=== PATIENT | male | born 1945 | race Caucasian/White ===

== ENCOUNTER 2018-08-11 16:35 | Emergency (ER) | payer MEDICARE, BC ==
[~2018-08-11] VITALS: Ht 165.1 cm; Wt 79.5 kg
[~2018-08-11 16:35] MED LIST: AMIODARONE HCL400 MG PO; AMLODIPINE5 MG PO; ASPI81TA PO; ASPIRIN 32325 MG/TAB PO; CARDI-OMEGA1000 MG PO; CENTRUM SILVER1 TA1 PO; COMBIVENT INH14.7 GM IH; DIOVAN HCT 25 M1 TAB PO; FISH OIL1000 MG PO; FLOMAX 0.40.4 MG/CAP PO; FLOMAX0.4 MG PO; HYDROCHLOR50 MG PO; KLOR-CON20 MEQ PO; LASIX 40MG TABL40 MG PO; LEVITRA20 MG PO; LEVOTHYROXIN0.125 MG PO; LEVOTHYROXINE0.15 MG PO; LISINOPRIL40 MG PO; LOPRESSOR 225 MG/TAB PO; METFORMIN1000 MG PO; METOPROLOL25 MG PO; MULTIPLE VITAMI1 CAP PO; NIASPAN1000 MG PO; NIASPAN500 MG PO; NORCO 325 MG-51 TAB PO; PLAVIX 75MG TAB75 MG PO; RESTORIL15 MG PO; SIMVASTATIN40 MG PO; TOPROL XL 50MG50 MG PO; TRIAZOLAM0.25 MG PO; VITAMIN C BUFF500 MG PO; VITAMIN C500 MG PO; VYTORIN 10 MG-21 TAB PO; ZESTRIL 20MG TA20 MG PO; ZESTRIL40 MG PO; ZINC50 M2 PO; ZOCOR 20MG20 MG PO
[2018-08-11] MEDS ORDERED: AMARYL1 MG PO (17:53)
[2018-08-11] MEDS ORDERED: SINGULAIR 4MG CH4 MG PO (17:54)
[2018-08-11 18:09] LABS: BASO # 0.1 (0.0-0.2); BASO % 0.7 % (0.0-2.0); EOS # 0.2 (0.0-0.7); EOS % 2.3 % (0-4.0); GRAN # 3.2 (1.4-6.5); GRAN % 46.8 % (42.2-75.2); HEMATOCRIT 42.3 % (42.0-52.0); HEMOGLOBIN 14.4 g/dl (13.5-18.0); LYMPH # 2.5 (1.2-3.4); LYMPH % 35.8 % (20.0-51.0); MEAN CELL VOLUME 93 fl (80.0-100.0); MEAN CORPUSCULAR HEMOGLOBIN 32 pg (27.0-31.0); MEAN CORPUSCULAR HGB CONC 34 g/dl (33.0-37.0); MEAN PLATELET VOLUME 8.4 fl (7.4-10.4); MONO % 14.1 % (1.7-9.3); PLATELET COUNT 312 K/mm3 (130-400); RED BLOOD COUNT 4.56 M/mm3 (4.20-5.60); REDCELL DISTRIBUTION WIDTH-CV 13.2 % (11.5-14.5)
[2018-08-11 18:19] LABS: ALANINE AMINOTRANSFERASE 35 U/L (21-72); ALBUMIN 4.8 gm/dL (3.5-5.0); ALKALINE PHOSPHATASE 46 U/L (50-136); ANION GAP 4 mmol/L (7-16); AST,SGOT 32 U/L (15-37); BILIRUBIN,TOTAL 0.7 mg/dL (0.0-1.0); BLOOD UREA NITROGEN 16 mg/dL (9-20); CALCIUM 9.4 mg/dL (8.4-10.2); CARBON DIOXIDE 35 mmol/L (22-30); CHLORIDE 97 mmol/L (98-107); CREATININE, serum 0.72 mg/dL (0.66-1.25); GLUCOSE 106 mg/dL (74-106); SODIUM 136 mmol/L (137-145); TOTAL PROTEIN 7.7 gm/dL (6.4-8.2)
[2018-08-11 18:30] LABS: TROPONIN-I < 0.012 ng/mL (0.000-0.034)
[2018-08-11 19:18] VITALS: BP 154/81; PULSE 56; TEMP 97.4
== END 2018-08-11 19:18 | disposition home or self-care (01) ==
LOC: COL.ER 16:35
PROVIDERS: Physician Assistant
DX: I87.2 Venous insufficiency (chronic) (peripheral) (principal); E11.9 Type 2 diabetes mellitus without complications; I10 Essential (primary) hypertension; I25.10 Atherosclerotic heart disease of native coronary artery without angina pectoris; E03.9 Hypothyroidism, unspecified; E78.5 Hyperlipidemia, unspecified; Z98.890 Other specified postprocedural states; Z79.84 Long term (current) use of oral hypoglycemic drugs; Z79.82 Long term (current) use of aspirin; Z79.02 Long term (current) use of antithrombotics/antiplatelets

== ENCOUNTER → 2019-01-08 | Outpatient (CLI) | payer MEDICARE, BC ==
[~2019-01-08] MED LIST changes: +AMARYL1 MG PO; +SINGULAIR 4MG CH4 MG PO
== END ==
LOC: COL.RAD 07:41
DX: R05 Cough (principal); Z95.1 Presence of aortocoronary bypass graft
CPT/HCPCS: Q9967

== ENCOUNTER → 2019-02-09 | Outpatient (CLI) | payer MEDICARE, BC | LOC: COL.RAD 08:11 | DX: I63.9 Cerebral infarction, unspecified (principal); I65.23 Occlusion and stenosis of bilateral carotid arteries | CPT/HCPCS: A9585 ==

== ENCOUNTER → 2019-02-14 | Outpatient (CLI) | payer MEDICARE, BC | LOC: COL.RAD 08:17 | DX: I65.23 Occlusion and stenosis of bilateral carotid arteries (principal) | CPT/HCPCS: Q9967 ==

== ENCOUNTER 2021-02-07 00:05 | Observation (INO) | payer MEDICARE, BC ==
[~2021-02-07] VITALS: Ht 165.1 cm; Wt 68.2 kg
[2021-02-07 01:10] LABS: BASO % 0.5 % (0.0-2.0); EOS # 0.2 (0.0-0.7); EOS % 1.9 % (0-4.0); GRAN # 5.8 (1.4-6.5); GRAN % 67.2 % (42.2-75.2); HEMATOCRIT 45.6 % (42.0-52.0); HEMOGLOBIN 15.4 g/dl (13.5-18.0); LYMPH # 1.8 (1.2-3.4); MEAN CELL VOLUME 92 fl (80.0-100.0); MEAN CORPUSCULAR HEMOGLOBIN 31 pg (27.0-31.0); MEAN CORPUSCULAR HGB CONC 34 g/dl (33.0-37.0); MEAN PLATELET VOLUME 8.3 fl (7.4-10.4); MONO # 0.8 (0.1-0.6); MONO % 8.9 % (1.7-9.3); PLATELET COUNT 333 K/mm3 (130-400); RED BLOOD COUNT 4.96 M/mm3 (4.20-5.60); REDCELL DISTRIBUTION WIDTH-CV 13.6 % (11.5-14.5)
[2021-02-07 01:24] LABS: ALANINE AMINOTRANSFERASE 28 U/L (4-49); ALBUMIN 4.4 gm/dL (3.5-5.0); ALKALINE PHOSPHATASE 52 U/L (50-136); ANION GAP 7 mmol/L (7-16); AST,SGOT 32 U/L (15-37); BILIRUBIN,TOTAL 0.6 mg/dL (0.0-1.0); BLOOD UREA NITROGEN 18 mg/dL (9-20); CALCIUM 9.4 mg/dL (8.4-10.2); CARBON DIOXIDE 28 mmol/L (22-30); CHLORIDE 97 mmol/L (98-107); GLUCOSE 183 mg/dL (74-106); LIPASE 51 U/L (23-300); POTASSIUM 4.1 mmol/L (3.4-5.0); SODIUM 132 mmol/L (137-145); TOTAL PROTEIN 7.2 gm/dL (6.4-8.2)
[2021-02-07 01:25] LABS: C-REACTIVE PROTEIN < 0.5 mg/dL (0.0-0.9)
[2021-02-07 01:56] LABS: COLLECTION METHOD CLEAN CATCH
[2021-02-07 02:01] LABS: PH 7 (5-8); SQUAMOUS EPITHELIAL None Seen /hpf; URINE APPEARANCE Clear; URINE BACTERIA None Seen /hpf; URINE BILIRUBIN Negative (NEGATIVE); URINE BLOOD Negative (NEGATIVE); URINE COLOR Yellow; URINE GLUCOSE 3+ (NEGATIVE); URINE KETONE Negative (NEGATIVE); URINE LEUKOCYTE ESTERASE Negative (NEGATIVE); URINE NITRATE Negative (NEGATIVE); URINE PROTEIN(semi-quant) Negative (NEGATIVE); URINE RBC 0-2 /hpf
--- NOTE | 2021-02-07 10:35 | NUR ---
Pt has arrived to the floor from ED. He is alert and oriented with no pain complaints at this time. IV fluids infusing, oriented pt to his room and educated him on room service. Pt only requested coffee at this time
--- NOTE | 2021-02-07 11:20 | NUR ---
resting in bed watching TV, denies pain or needs, bedside shift report received from Nicholas Cabrera
--- NOTE | 2021-02-07 11:30 | NUR ---
spoke with Dr Manzo regarding patient wanting to eat and go home, order received and will start on general diet, instructed on ordering regular food, is up and about in room independently, is alert and oriented, skin warm and dry, color normal, heart rate strong and regular, lungs CTa, bowel sounds present in all 4 quads, denies pain or needs,
[2021-02-07] MEDS ORDERED: ASPIRIN E.C. 8181 MG PO (11:50)
[2021-02-07] MEDS ORDERED: HCTZ 25MG TAB25 MG PO (11:52)
[2021-02-07] MEDS ORDERED: SYNTHROID 0.10.15 MG PO ×2 (11:54→11:55)
[2021-02-07] MEDS ORDERED: GLUCOPHAGE500 MG/TAB PO (11:59)
[2021-02-07] MEDS ORDERED: TOPROL XL 25MG25 MG PO (12:00)
[2021-02-07] MEDS ORDERED: SINGULAIR 110 MG/TAB PO (12:01)
[2021-02-07] MEDS ORDERED: LIPITOR 40MG TA40 MG PO (12:03)
[2021-02-07] MEDS ORDERED: VITAMIN D31000 I1 PO (12:06)
[2021-02-07] MEDS ORDERED: VIAGRA100 M1 PO (12:07)
[2021-02-07] MEDS ORDERED: GLUCOTROL XL5 MG/TAB PO (12:08)
[2021-02-07] MEDS ORDERED: NORVASC 10MG10 MG PO (12:08)
[2021-02-07] MEDS ORDERED: JARDIANCE10 PO (12:09)
[2021-02-07] MEDS ORDERED: PROSCAR 5MG5 MG PO (12:10)
[2021-02-07] MEDS ORDERED: DESYREL 100MG100 MG PO (12:10)
[2021-02-07] MEDS ORDERED: FLOMAX 0.40.4 MG/CAP PO (12:10)
[2021-02-07] MEDS ORDERED: MELATIN 3 MG-11 TAB PO (12:11)
[2021-02-07] MEDS ORDERED: [UNRECOGNIZED DRUG - OTHER] PO (12:22)
[2021-02-07] MEDS ORDERED: PLETAL 100MG T100 MG PO (12:23)
[2021-02-07] MEDS ORDERED: PLAVIX 75MG TAB75 MG PO (12:31)
--- NOTE | 2021-02-07 13:15 | NUR ---
Dr Manzo in to see patient, if tolerates food without nausea or pain will plan discharge later
[2021-02-07 14:02] VITALS: BP 137/99; PULSE 63; TEMP 98.5
--- NOTE | 2021-02-07 16:10 | NUR ---
discharged instructions given to patient and verbalizes understanding, explained the importance of not taking his plavix until after having surgery
--- NOTE | 2021-02-07 16:15 | NUR ---
discharged ambulatory
== END 2021-02-07 16:15 | disposition home or self-care (01) ==
LOC: COL.ER 00:05 → SURG 04:11
PROVIDERS: Emergency Medicine; ADMIT Surgery
DX: K40.30 Unilateral inguinal hernia, with obstruction, without gangrene, not specified as recurrent (principal); K56.600 Partial intestinal obstruction, unspecified as to cause; I10 Essential (primary) hypertension; E78.5 Hyperlipidemia, unspecified; I25.10 Atherosclerotic heart disease of native coronary artery without angina pectoris; E11.9 Type 2 diabetes mellitus without complications; F17.210 Nicotine dependence, cigarettes, uncomplicated; E03.9 Hypothyroidism, unspecified; Z95.1 Presence of aortocoronary bypass graft; Z95.0 Presence of cardiac pacemaker; Z79.84 Long term (current) use of oral hypoglycemic drugs; Z79.02 Long term (current) use of antithrombotics/antiplatelets; Z79.82 Long term (current) use of aspirin; Z79.890 Hormone replacement therapy; Z88.8 Allergy status to other drugs, medicaments and biological substances
CPT/HCPCS: G0378; J2270; J2405; J7030; Q9967

== ENCOUNTER 2021-02-12 06:30 | Day surgery (SDC) | payer MEDICARE, BC ==
[2021-02-12] VITALS (8 sets, daily range): BP systolic 91–131; BP diastolic 52–71; PULSE 59–67; TEMP 97.5–98.4
[~2021-02-12] VITALS: Ht 165.1 cm; Wt 71.1 kg
[~2021-02-12 06:30] MED LIST changes: +ASPIRIN E.C. 8181 MG PO; +DESYREL 100MG100 MG PO; +GLUCOPHAGE500 MG/TAB PO; +GLUCOTROL XL5 MG/TAB PO; +HCTZ 25MG TAB25 MG PO; +JARDIANCE10 PO; +LIPITOR 40MG TA40 MG PO; +MELATIN 3 MG-11 TAB PO; +NORVASC 10MG10 MG PO; +PLETAL 100MG T100 MG PO; +PROSCAR 5MG5 MG PO; +SINGULAIR 110 MG/TAB PO; +SYNTHROID 0.10.15 MG PO; +TOPROL XL 25MG25 MG PO; +VIAGRA100 M1 PO; +VITAMIN D31000 I1 PO; +[UNRECOGNIZED DRUG - OTHER] PO
[2021-02-12] MEDS ORDERED: PLAVIX 75MG TAB75 MG PO (07:25)
[2021-02-12] MEDS ORDERED: ULTRAM 50MG TAB50 MG PO (10:02)
--- NOTE | 2021-02-12 10:50 | NUR ---
Pt returns to [facility] from PACU, drowsy but easily arousable and requesting coffee. Pt reports pain to left lower abdomen 02/14 but blood pressure has been 90's/50's in PACU so has not received any pain medication at this time. O2 2L/NC to keep sats >94%. Will continue to monitor, warm blanket to abdomen. Pt's and daughter at bedside.
--- NOTE | 2021-02-12 11:05 | NUR ---
Pt sat up slightly for a drink of coffee, blood pressure remains stable. Will continue to monitor, muffin to bedside per request. No nausea.
--- NOTE | 2021-02-12 11:30 | NUR ---
Pt tolerated coffee and a muffin well. O2 sats 94% on 2L/NC, more awake and alert now. Tramadol given for pain per orders. Call light in reach, side rails up x2, denies needs at this time.
--- NOTE | 2021-02-12 12:05 | NUR ---
Pt doing well, up to the bathroom, pain to abdomen, tolerable and moving around well. Voids without difficulty. O2/2L/NC removed and O2 sats >94%.
--- NOTE | 2021-02-12 12:45 | NUR ---
Pt wanting to go home. Pt doing well, VSS, denies nausea and pain tolerable. Discharge instructions provided to pt and his , understanding given. Pt will go to [facility]'s to miner pick pain medication. IV d/c'd to right wrist. Pt up to the bathroom again and voids. Pt taken to private car via w/c and left in care of .
== END 2021-02-12 13:05 | disposition home or self-care (01) ==
LOC: SDCO 06:30
DX: K40.90 Unilateral inguinal hernia, without obstruction or gangrene, not specified as recurrent (principal); I10 Essential (primary) hypertension; I25.10 Atherosclerotic heart disease of native coronary artery without angina pectoris; E78.5 Hyperlipidemia, unspecified; G47.33 Obstructive sleep apnea (adult) (pediatric); E03.9 Hypothyroidism, unspecified; E11.9 Type 2 diabetes mellitus without complications; F17.210 Nicotine dependence, cigarettes, uncomplicated; Z20.822 Contact with and (suspected) exposure to COVID-19; Z79.899 Other long term (current) drug therapy; Z79.84 Long term (current) use of oral hypoglycemic drugs; Z99.89 Dependence on other enabling machines and devices; Z86.73 Personal history of transient ischemic attack (TIA), and cerebral infarction without residual deficits
CPT/HCPCS: C1781; J0690; J1100; J2405; J2704; J3010; J7030

== ENCOUNTER → 2021-06-03 | Outpatient (CLI) | payer MEDICARE, BC ==
[~2021-06-03] MED LIST changes: +ULTRAM 50MG TAB50 MG PO
== END ==
LOC: COL.RAD 13:55
DX: R07.89 Other chest pain (principal); R79.89 Other specified abnormal findings of blood chemistry
CPT/HCPCS: Q9967

== ENCOUNTER → 2021-06-03 | Outpatient (CLI) | payer MEDICARE, BC | LOC: COL.LAB 10:59 | DX: R07.89 Other chest pain (principal) ==

== ENCOUNTER → 2021-11-17 | Outpatient (CLI) | payer MEDICARE, BC | LOC: COL.RAD 13:20 | DX: I65.23 Occlusion and stenosis of bilateral carotid arteries (principal); H81.13 Benign paroxysmal vertigo, bilateral; Z86.73 Personal history of transient ischemic attack (TIA), and cerebral infarction without residual deficits | CPT/HCPCS: Q9967 ==

== ENCOUNTER → 2022-04-06 | Outpatient (CLI) | payer MEDICARE, BC | LOC: ZCOL.LAB 23:41 | DX: H60.02 Abscess of left external ear (principal) ==